=== PATIENT | female | born 1950 | race Native Hawaiian/Other Pacific Islander ===

== ENCOUNTER 2019-01-21 22:20 | Outpatient (CLI) | payer OTHER | END 2019-01-21 22:46 | disposition short-term general hospital (02) | LOC: AMB 22:20 | DX: M54.89 Other dorsalgia (principal); M25.512 Pain in left shoulder; S50.312A Abrasion of left elbow, initial encounter; V86.69XA Passenger of other special all-terrain or other off-road motor vehicle injured in nontraffic accident, initial encounter; Y93.89 Activity, other specified; Y92.488 Other paved roadways as the place of occurrence of the external cause | CPT/HCPCS: A0425; A0427 ==

== ENCOUNTER 2019-01-21 22:49 | Emergency (ER) | payer OTHER ==
[~2019-01-21] VITALS: Ht 157.5 cm; Wt 117.9 kg
[2019-01-21 23:29] LABS: PLATELET COUNT 124 K/uL (152-353)
[2019-01-21 23:40] LABS: POTASSIUM 4.2 mmol/L (3.6-5.2)
[2019-01-22 02:25] VITALS: TEMP 98.1
[2019-01-22 02:30] VITALS: BP 176/77
== END 2019-01-22 02:25 | disposition short-term general hospital (02) ==
LOC: ED 22:58
PROVIDERS: Student in an Organized Health Care Education/Training Program
PROC: 0T9B70Z Drainage of Bladder with Drainage Device, Via Natural or Artificial Opening (ICD-10-PCS; principal; 2019-01-21)
DX: S27.1XXA Traumatic hemothorax, initial encounter (principal); S22.42XA Multiple fractures of ribs, left side, initial encounter for closed fracture; S42.112A Displaced fracture of body of scapula, left shoulder, initial encounter for closed fracture; R10.84 Generalized abdominal pain; S09.90XA Unspecified injury of head, initial encounter; V86.69XA Passenger of other special all-terrain or other off-road motor vehicle injured in nontraffic accident, initial encounter; Y92.89 Other specified places as the place of occurrence of the external cause
CPT/HCPCS: 51702; 80053; 81000; 85027; 86850; 86900; 86901; 93005; 96360; 96374; 96375; 96376; 99285; J2270; J2405; Q9963